=== PATIENT | female | born 1975 | race Asian ===

== ENCOUNTER 2018-09-25 08:00 | Outpatient (CLI) | payer OTHER ==
[2018-09-25 13:31] LABS: BASOPHILS # (AUTO) 0.1 10^3/uL (0.0-0.1); EOSINOPHILS # (AUTO) 0.1 10^3/uL (0.0-0.7); EOSINOPHILS % (AUTO) 1.8 %; HGB - HEMOGLOBIN 14.8 g/dL (12.0-16.0); LYMPHOCYTES # (AUTO) 2.4 10^3/uL (1.5-3.5); LYMPHOCYTES % (AUTO) 36.6 %; MEAN CORPUSCULAR HEMOGLOBIN 29.3 pg (27.0-31.0); MONOCYTES # (AUTO) 0.4 10^3/uL (0.0-1.0); MONOCYTES % (AUTO) 5.8 %; NEUTROPHILS # (AUTO) 3.6 10^3/uL (1.5-6.6); NEUTROPHILS % (AUTO) 54.8 %; PLT - PLATELET COUNT 225 10^3/uL (130-450); RED BLOOD COUNT 5.06 10^6/uL (4.20-5.40); RED CELL DISTRIBUTION WIDTH 13.1 % (12.0-15.0); WHITE BLOOD COUNT 6.6 x10^3/uL (4.8-10.8)
[2018-09-25 13:34] LABS: ALBUMIN 4.1 g/dL (3.2-5.5); ALBUMIN/GLOBULIN RATIO 1.2 (1.0-2.2); ALKALINE PHOSPHATASE 71 IU/L (42-121); ALT ALANINE AMINOTRANSFERASE 81 IU/L (10-60); AST ASPARTATE AMINOTRANSFERASE 38 IU/L (10-42); BILIRUBIN,TOTAL 0.8 mg/dL (0.2-1.0); BUN - BLOOD UREA NITROGEN 9 mg/dL (6-20); CALCIUM 9.5 mg/dL (8.5-10.3); CARBON DIOXIDE - CO2 27 mmol/L (21-32); CHLORIDE 101 mmol/L (101-111); CHOL/HDL RATIO 5.5 (<4.4); CHOLESTEROL 253 mg/dL; CREATININE 0.7 mg/dL (0.4-1.0); GFR - MDRD 92 (>89); GLUCOSE 111 mg/dL (70-100); HDL CHOLESTEROL 46 mg/dL; SODIUM 136 mmol/L (135-145); TOTAL PROTEIN 7.5 g/dL (6.7-8.2)
[2018-09-25 13:56] LABS: LDL CHOLESTEROL,DIRECT 83 mg/dL; LDLD/HDL RATIO 1.8 (<4.4)
[2018-09-25 14:08] LABS: HB2 TOTAL 16.3 g/dL; HEMOGLOBIN A1C 0.66 g/dL; HEMOGLOBIN A1C % 5.9 % (4.6-6.2)
== END 2018-09-25 23:59 | disposition home or self-care (01) ==
LOC: LAB.WCP 08:00
PROVIDERS: ATTEND Physician Assistant
DX: Z00.00 Encounter for general adult medical examination without abnormal findings (principal); E78.1 Pure hyperglyceridemia
CPT/HCPCS: 36415; 80053; 80061; 83036; 83721; 84443; 85025

== ENCOUNTER 2018-10-10 14:05 | Outpatient (CLI) | payer OTHER ==
--- NOTE | 2018-10-14 11:41 | Mammography Report ---
Reason: SCREENING MAMMO Procedure Date: 10/10/2018 Accession Number: [id number] / [id number] Procedure: KENDRA - Screening Mammo w/Lex CPT Code: FULL RESULT: EXAM: Screening Mammo w/Lex DATE: 10/10/2018 2:47 PM CLINICAL HISTORY: Screening examination. TECHNIQUE: (B) - Bilateral CC and MLO views were obtained. COMPARISON: 09/09/2017, 02/18/2017, 11/23/2015 PARENCHYMAL PATTERN: (A) - The breasts demonstrate scattered fibroglandular densities bilaterally. FINDINGS: No change in widespread bilateral benign type calcifications including arterial calcifications and benign secretory disease. There are no suspicious masses, pleomorphic calcifications, or areas of distortion. IMPRESSION: Benign findings. BI-RADS category 2. RECOMMENDATION: (ANNUAL) - Recommend routine annual screening mammography. BI-RADS CATEGORY: (2) - Benign Findings. STANDARD QUALIFYING STATEMENTS: 1. This examination was not reviewed with the aid of Computer-Aided Detection (CAD). 2. A negative or benign imaging report should not preclude biopsy if clinically suspicious findings are present. 3. Dense breasts may obscure an underlying neoplasm. 4. This examination was reviewed without the aid of 3D breast imaging (tomosynthesis).
== END 2018-10-10 14:06 | disposition home or self-care (01) ==
LOC: DI 14:05
DX: Z12.31 Encounter for screening mammogram for malignant neoplasm of breast (principal)
CPT/HCPCS: 77063; 77067

== ENCOUNTER 2019-06-18 08:00 | Outpatient (CLI) | payer OTHER ==
[2019-06-18 18:55] LABS: ALBUMIN 4.7 g/dL (3.2-5.5); ALBUMIN/GLOBULIN RATIO 1.5 (1.0-2.2); BILIRUBIN,TOTAL 0.5 mg/dL (0.2-1.0); CALCIUM 9.2 mg/dL (8.5-10.3); CREATININE 0.7 mg/dL (0.4-1.0); TOTAL PROTEIN 7.8 g/dL (6.7-8.2)
[2019-06-18 19:06] LABS: HB2 TOTAL 14.9 g/dL; HEMOGLOBIN A1C 0.61 g/dL; HEMOGLOBIN A1C % 5.9 % (4.6-6.2)
== END 2019-06-18 23:59 | disposition home or self-care (01) ==
LOC: LAB.WCP 08:00
PROVIDERS: ATTEND Physician Assistant
DX: R73.03 Prediabetes (principal); R94.5 Abnormal results of liver function studies
CPT/HCPCS: 36415; 80053; 83036

== ENCOUNTER 2019-10-25 12:16 | Outpatient (CLI) | payer OTHER ==
--- NOTE | 2019-10-25 13:30 | Ultrasound Report ---
Reason: IRREGULAR MENSES Procedure Date: 10/25/2019 Accession Number: [id number] / [id number] Procedure: US - Pelvic w/Transvaginal CPT Code: Final Report FULL RESULT: EXAM: PELVIC ULTRASOUND EXAM DATE: 10/25/2019 01:00 PM. CLINICAL HISTORY: Irregular menses. COMPARISON: None. TECHNIQUE: Realtime transabdominal pelvic scan performed to identify the uterus and adnexa and as an overview of other pelvic structures, followed by transvaginal scan to provide greater detail of the uterus and adnexa, with static image documentation. FINDINGS: Uterus: 9.1 x 5.2 x 5.1 cm, volume 126 cc. Anteverted position. Normal overall size and echotexture. Masses: 1. Fundal subserosal fibroid 2.0 x 1.9 x 1.8 cm. 2. Fundal subserosal fibroid 1.5 x 1.4 x 1.3 cm. 3. Posterior subserosal fibroid 3.0 x 2.9 x 2.6 cm. Endometrium: 3 mm. Normal. Cervix: 4 mm nabothian cyst present. Right Ovary: 2.4 x 1.5 x 1.0 cm, volume 1.9 cc. Normal echotexture and blood flow. Left Ovary: 2.7 x 2.7 x 1.6 cm, volume 6.1 cc. Cyst or dominant follicle measures 1.9 cm, likely incidental. Free Fluid: None. Other: None. IMPRESSION: 1. No endometrial mass or thickening. 2. 3 subserosal uterine fibroids range in size from 1.5-3.0 cm. RADIA
== END 2019-10-25 12:17 | disposition home or self-care (01) ==
LOC: DI 12:16
PROVIDERS: ATTEND Physician Assistant
DX: D25.2 Subserosal leiomyoma of uterus (principal)
CPT/HCPCS: 76830; 76856

== ENCOUNTER 2019-11-24 08:00 | Outpatient (CLI) | payer OTHER ==
[2019-11-24 13:56] LABS: PROLACTIN 7.8 ng/mL
[2019-11-24 14:19] LABS: FOLLICLE STIMULATING HORMONE 18.28 mIU/mL
== END 2019-11-24 23:59 | disposition home or self-care (01) ==
LOC: LAB.WCP 08:00
PROVIDERS: ATTEND Obstetrics & Gynecology
DX: N92.6 Irregular menstruation, unspecified (principal)
CPT/HCPCS: 36415; 82306; 82670; 83001; 84146; 84443

== ENCOUNTER 2020-01-26 14:57 | Outpatient (CLI) | payer OTHER ==
--- NOTE | 2020-01-27 14:49 | Mammography Report ---
BILATERAL DIGITAL SCREENING MAMMOGRAM 3D/2D: 01/26/2020 CLINICAL: Routine screening. Comparison is made to exam dated: 10/10/2018 mammogram - [facility]. The tissue of both breasts is heterogeneously dense. This may lower the sensitivity of mammography. There is a focal asymmetry in the left breast at 2 o'clock posterior depth. No other significant masses, calcifications, or other findings are seen in either breast. IMPRESSION: INCOMPLETE: NEEDS ADDITIONAL IMAGING EVALUATION The focal asymmetry in the left breast is indeterminate. Additional views with possible ultrasound a re recommended. This exam was interpreted at Station ID: [id number]. NOTE: For mammograms, a report in lay terms will be sent to the patient. Approximately 15% of breast malignancies will not be visualized mammographically. In the management of a palpable breast mass, a negative mammogram must not discourage biopsy of a clinically suspicious lesion. Electronically Signed By: Reva Parnell M.D. lk/:01/26/2020 15:57:55 ACR BI-RADS Category 0: Incomplete 3340F PARENCHYMAL PATTERN: (D) - The breast(s) demonstrate(s) heterogeneously dense fibroglandular jana kelley. BI-RADS CATEGORY: (0) - 0 Mammo and [place] [id number] Immediate follow-up LATERALITY: (B)
== END 2020-01-26 14:58 | disposition home or self-care (01) ==
LOC: DI 14:57
DX: Z12.31 Encounter for screening mammogram for malignant neoplasm of breast (principal); R92.8 Other abnormal and inconclusive findings on diagnostic imaging of breast
CPT/HCPCS: 77063; 77067

== ENCOUNTER 2020-02-12 10:45 | Outpatient (CLI) | payer OTHER ==
--- NOTE | 2020-02-13 08:56 | XRAY Report ---
PROCEDURE: Lumbar Spine 2 View INDICATIONS: LOW BACK PAIN TECHNIQUE: 3 views of the lumbar spine were acquired. COMPARISON: None. FINDINGS: Bones: 5 [id number] vertebrae are present. There is normal bony alignment. No vertebral body compression fractures. Mild lower lumbar degenerative disc space loss. Facet hypertrophy from L3 L4-L 5 S1. No suspicious bony lesions. Soft tissues: Overlying bowel gas pattern is normal. No suspicious soft tissue calcifications. IMPRESSION: Lower lumbar degenerative disc disease and facet arthropathy. No evidence acute bony abn ormality of the lumbar spine. Reviewed by: Dewayne Ivan MD on 02/12/2020 12:24 PM PDT Approved by: Dewayne Ivan MD on 02/12/2020 12:24 PM PDT Station ID: [id number]
== END 2020-02-12 10:46 | disposition home or self-care (01) ==
LOC: DI 10:45
PROVIDERS: ATTEND Physician Assistant
DX: M51.36 Other intervertebral disc degeneration, lumbar region (principal); M47.816 Spondylosis without myelopathy or radiculopathy, lumbar region; M47.817 Spondylosis without myelopathy or radiculopathy, lumbosacral region
CPT/HCPCS: 72100

== ENCOUNTER 2020-03-16 14:12 | Outpatient (CLI) | payer OTHER ==
--- NOTE | 2020-03-17 08:26 | Mammography Report ---
UNILATERAL LEFT DIGITAL DIAGNOSTIC MAMMOGRAM 3D/2D: 03/16/2020 CLINICAL: Patient returns today to evaluate asymmetry in left breast. Comparison is made to exams dated: 01/26/2020 mammogram and 10/10/2018 mammogram - [facility]. The tissue of left breast is heterogeneously dense. This may lower the sensitivity of flavio mography. Previously questioned asymmetry dissipated with spot compression, indicating that the abnormality on the screening exam was due to superimposition of normal fibroglandular tissue. No significant masses, calcifications, or other findings are seen in the breast. IMPRESSION: NEGATIVE Previously questioned asymmetry dissipated with spot compression, indicating that the abnormality on the screening exam was due to superimposition of normal fibroglandular tissue. There is no mammographic evidence of malignancy. Return to annual mammogram screening schedule is rec ommended. This exam was interpreted at Station ID: [id number]. NOTE: For mammograms, a report in lay terms will be sent to the patient. Approximately 15% of breast malignancies will not be visualized mammographically. In the management of a palpable breast mass, a negative mammogram must not discourage biopsy of a clinically suspicious lesion. Electronically Signed By: Rodrick Villarreal M.D. jr/:03/16/2020 15:24:31 ACR BI-RADS Category 1: Negative 3341F PARENCHYMAL PATTERN: (D) - The breast(s) demonstrate(s) heterogeneously dense fibroglandular jana kelley. BI-RADS CATEGORY: (1) - 1 Mammogram [id number] return to screening LATERALITY: (B)
== END 2020-03-16 14:13 | disposition home or self-care (01) ==
LOC: DI 14:12
PROVIDERS: ATTEND Physician Assistant
DX: R92.8 Other abnormal and inconclusive findings on diagnostic imaging of breast (principal)

== ENCOUNTER 2020-04-19 15:05 | Outpatient (CLI) | payer OTHER ==
--- NOTE | 2020-04-19 16:32 | Ultrasound Report ---
PROCEDURE: Pelvic w/Transvaginal INDICATIONS: IRREGULAR MENSES, UTERUS FIBROIDS TECHNIQUE: Real-time scanning was performed of the pelvic organs, with image documentation. Additional endovagi nal scanning was necessary due to incomplete visualization of the adnexal and endometrial structures by transabdominal scanning. COMPARISON: 10/25/2019 pelvic ultrasound. FINDINGS: Transabdominal scanning: Limited scanning through the kidneys shows no hydronephrosis. No pathologi c free abdominal or pelvic fluid. Endovaginal scanning: Uterus: Uterus is normal in size at 5.3 x 4.8 x 6.3 cm. The endometrium measures 3.0 mm in combined thickness. Note is made of scattered uterine fibroids. On the right at the fundal area subserosal p ositioning there is a 2.3 x 2.3 x 1.8 cm fibroid not significantly changed from the prior study. At t he midline posteriorly in the subserosal position there is a 3.1 x 2.8 x 2.7 cm fibroid, also not sig nificantly changed. On the left in the fundus at the subserosal area there is a 1.7 x 2.0 x 1.8 cm ad ditional fibroid, also not significantly enlarged diminished in size considering differences in scan angulation. At the right ovary the structure measures 2.5 x 0.8 x 2.0 cm and contains a cyst that is largest at 2 cm. Less than 12 follicular cysts are present. Similarly on the left the ovarian size is normal at 2 .6 x 1.1 x 1.9 cm and the largest cyst is less than 2 cm IMPRESSION: Uterine fibroids which have not significantly changed in size, scattered within the myometrium. Elina l endometrial lining thickness. Scattered follicular cysts noted in each ovary, no dominant or pathol ogically enlarged ovarian cyst is found. Reviewed by: Ethan Ward MD on 04/19/2020 4:30 PM PDT Approved by: Ethan Ward MD on 04/19/2020 4:30 PM PDT Station ID: [id number]
== END 2020-04-19 15:06 | disposition home or self-care (01) ==
LOC: DI 15:05
PROVIDERS: ATTEND Obstetrics & Gynecology
DX: D25.2 Subserosal leiomyoma of uterus (principal); N83.02 Follicular cyst of left ovary; N83.01 Follicular cyst of right ovary
CPT/HCPCS: 76830; 76856

== ENCOUNTER 2020-08-18 07:20 | Outpatient (CLI) | payer OTHER ==
[2020-08-18 12:20] LABS: HEMOGLOBIN A1c% 5.8 % (4.27-6.07)
[2020-08-18 12:35] LABS: ALBUMIN 4.3 g/dL (3.2-5.5); ALBUMIN/GLOBULIN RATIO 1.4 (1.0-2.2); ALKALINE PHOSPHATASE 73 IU/L (42-121); ALT ALANINE AMINOTRANSFERASE 69 IU/L (10-60); AST ASPARTATE AMINOTRANSFERASE 37 IU/L (10-42); BILIRUBIN,TOTAL 0.7 mg/dL (0.2-1.0); BUN - BLOOD UREA NITROGEN 11 mg/dL (6-20); CALCIUM 9.6 mg/dL (8.5-10.3); CARBON DIOXIDE - CO2 23 mmol/L (21-32); CHLORIDE 101 mmol/L (101-111); CHOLESTEROL 276 mg/dL; CREATININE 0.7 mg/dL (0.4-1.0); GLUCOSE 102 mg/dL (70-100); HDL CHOLESTEROL 46 mg/dL; TOTAL PROTEIN 7.4 g/dL (6.7-8.2)
[2020-08-18 13:10] LABS: LDL CHOLESTEROL,DIRECT 83 mg/dL; LDLD/HDL RATIO 1.8 (<4.4)
== END 2020-08-18 23:59 | disposition home or self-care (01) ==
LOC: LAB.WCP 07:20
PROVIDERS: ATTEND Physician Assistant Medical
DX: R73.9 Hyperglycemia, unspecified (principal); E55.9 Vitamin D deficiency, unspecified; E78.1 Pure hyperglyceridemia
CPT/HCPCS: 36415; 80053; 80061; 82306; 83036; 83721

== ENCOUNTER 2020-10-02 04:56 | Emergency (ER) | payer OTHER ==
--- NOTE | 2020-10-02 05:04 | ED Physician Documentation ---
PD HPI CHEST PAIN - Stated complaint Stated Complaint: CHEST PRESSURE, NAUSEA - Chief complaint Chief Complaint: Cardiac - History obtained from History obtained from: Patient - History of Present Illness Timing - onset: How many days ago (4-5) Timing - onset during: Light activity Timing - duration: Days (4-5) Timing - details: Gradual onset, Waxing and waning (Onset this past of right flank to upper abdomen and lower chest pain waxing and waning and improved with ibuprofen initially. More consistent the last 2 days. No change with breathing position or eating.) Quality: Aching, Pain Location: Right chest (upper abd to lower chest, just under breast, radiating to right flank.) Radiation: Other (right flank) Improved by: Other medication (ibuprofen initially improved it, but not the past 2 days.). No: Rest Worsened by: No: Inspiration, Eating, Movement, Palpation Associated symptoms: Nausea, General Weakness, Other (feeling tired/fatigue; has not had any injury to the area nor any sores/rash.). No: Shortness of air, Vomiting, Palpitations, Cough Similar symptoms before: Has not had sx before Recently seen: Not recently seen Review of Systems Constitutional: reports: Fatigue. denies: Fever, Chills, Myalgias Nose: denies: Rhinorrhea / runny nose, Congestion Throat: denies: Sore throat Cardiac: denies: Palpitations, Pedal edema, Calf pain Respiratory: denies: Cough GI: reports: Nausea. denies: Vomiting, Diarrhea, Bloody / black stool : denies: Dysuria, Frequency, Hematuria Skin: denies: Rash, Lesions Neurologic: reports: Generalized weakness. denies: Near syncope, Headache PD PAST MEDICAL HISTORY - Past Medical History Cardiovascular: None Respiratory: None Endocrine/Autoimmune: None GI: None - Allergies Allergies/Adverse Reactions: Allergies Allergy/AdvReac Type Severity Reaction Status Date / Time No Known Drug Allergies Allergy Verified 10/02/20 05:06 PD ED PE NORMAL - Vitals Vital signs reviewed: Yes - General General: Alert and oriented X 3, Well developed/nourished - HEENT HEENT: Moist mucous membranes, Pharynx benign - Neck Neck: Supple, no meningeal sign, No adenopathy - Cardiac Cardiac: RRR, No murmur - Respiratory Respiratory: No respiratory distress, Clear bilaterally - Abdomen Abdomen: Normal bowel sounds, Soft, Non tender, Non distended, No organomegaly - Female Female : Deferred - Rectal Rectal: Deferred - Back Back: No CVA TTP - Derm Derm: Normal color, No rash - Extremities Extremities: No edema, No calf tenderness / cord - Neuro Neuro: Alert and oriented X 3, No motor deficit, Normal speech Results - Vitals Vitals: Vital Signs - 24 hr 10/02/20 05:00 Temperature 36.0 C L Heart Rate 72 Respiratory 18 Rate Blood Pressure 127/76 O2 Saturation 97 Oxygen O2 Source Room air - EKG (time done) 05:00 Rate: Rate (enter#) (73) Rhythm: NSR [place]: Normal Intervals: Normal CO QRS: Normal Ischemia: Normal ST segments. No: ST elevation c/w ischemia, ST depression Compare to prior EKG: Old EKG unavailable PD MEDICAL DECISION MAKING - ED course Complexity details: considered differential (She has had 4 to 5 days of right upper quadrant abdominal vs lower chest pain not really associated with breathing movement eating or position. No tenderness in the upper abdomen. Unclear the etiology. EKG is normal. Will check troponin as well as LFTs and blood count. Opt for CT over US.), d/w patient
[2020-10-02] MEDS ORDERED: ONDANSETRON 4 MG/2 ML VIAL IVP STA (05:20)
[2020-10-02] MEDS ORDERED: MORPHINE 10 MG/ML VIAL IVP STA (05:20)
[2020-10-02] MEDS ORDERED: SODIUM CHLORIDE 0.9% 1,000 ML IV STA (05:24)
[2020-10-02 05:38] LABS: BASOPHILS % (AUTO) 0.6 %; EOSINOPHILS # (AUTO) 0.1 10^3/uL (0.0-0.7); EOSINOPHILS % (AUTO) 0.8 %; HCT - HEMATOCRIT 38.4 % (37.0-47.0); HGB - HEMOGLOBIN 13.3 g/dL (12.0-16.0); LYMPHOCYTES # (AUTO) 2.6 10^3/uL (1.5-3.5); LYMPHOCYTES % (AUTO) 39.3 %; MEAN CORPUSCULAR HEMOGLOBIN 28.9 pg (27.0-31.0); MEAN CORPUSCULAR HGB CONC 34.6 g/dL (32.0-36.0); MEAN CORPUSCULAR VOLUME 83.5 fL (81.0-99.0); MEAN PLATELET VOLUME 10.1 fL (7.9-10.8); MONOCYTES # (AUTO) 0.5 10^3/uL (0.0-1.0); MONOCYTES % (AUTO) 7.4 %; NEUTROPHILS # (AUTO) 3.4 10^3/uL (1.5-6.6); NEUTROPHILS % (AUTO) 51.6 %; PLT - PLATELET COUNT 211 10^3/uL (130-450); RED CELL DISTRIBUTION WIDTH 11.3 % (12.0-15.0); WHITE BLOOD COUNT 6.6 x10^3/uL (4.8-10.8)
[2020-10-02] MEDS ORDERED: IOPAMIDOL-300 100 ML VIAL ONE (05:44)
[2020-10-02 05:58] LABS: ALBUMIN 3.9 g/dL (3.2-5.5); ALBUMIN/GLOBULIN RATIO 1.4 (1.0-2.2); BILIRUBIN,TOTAL 0.5 mg/dL (0.2-1.0); CREATININE 0.4 mg/dL (0.4-1.0); POTASSIUM 3.9 mmol/L (3.5-5.0); TOTAL PROTEIN 6.7 g/dL (6.7-8.2)
[2020-10-02 06:04] LABS: BILIRUBIN,URINE NEGATIVE (NEGATIVE); GLUCOSE, URINE (UA) NEGATIVE (NEGATIVE); KETONES,URINE (UA) NEGATIVE (NEGATIVE); LEUKOCYTE ESTERASE, URINE NEGATIVE (NEGATIVE); NITRITE,URINE NEGATIVE (NEGATIVE); OCCULT BLOOD,URINE NEGATIVE (NEGATIVE); PROTEIN,URINE NEGATIVE (NEGATIVE); UROBILINOGEN,URINE 0.2 (NORMAL) E.U./dL (NORMAL)
[2020-10-02 06:07] LABS: CLARITY,URINE CLEAR (CLEAR); HCG UR QUAL NEGATIVE
[2020-10-02] MEDS ORDERED: IOPAMIDOL-300 100 ML VIAL IVP ONE (06:36)
[2020-10-02] MEDS ORDERED: MORPHINE 2 MG/ML CARPUJECT IVP STA (07:38)
--- NOTE | 2020-10-02 07:41 | ED Physician Documentation ---
ED Addendum - Addendum Addendum: 10/02/20 07:40 Patient endorsed to me by Dr. Ornelas pending CT. Upon my exam she is in no acute distress, stating that the morphine helps with her pain and is now 4 out of 10 however she feels like it is creeping back up. Nontender on exam with negative Hoskins sign. Liver edge palpable several inches below the rib. LFTs within normal limits. Will await CT results and reevaluate. 10/02/20 08:46 CT with fatty liver, fibroids. POCUS without evidence of gallstones. grossly normal cbd, gbw. no PCCF. neg SM. d/w patient who knows to f/u with her primary for referral to GI. plan to c/w ibuprofen as needed for pain. strict return precautions given. impression 1. steatohepatitis 2. uterine adenomyosis 3. abdominal pain
--- NOTE | 2020-10-02 08:23 | CT Report ---
PROCEDURE: Abdomen/Pelvis W INDICATIONS: Abdominal pain, RUQ, for 4 days CONTRAST: IV CONTRAST: Isovue 300 ml: 100 PO CONTRAST: *NO PO CONTRAST TECHNIQUE: After the administration of contrast, 5 mm thick sections acquired from the diaphragms to the sym physis. 5 mm thick coronal and sagittal reformats were acquired. For radiation dose reduction, the following was used: automated exposure control, adjustment of mA and/or kV according to patient size . COMPARISON: None. FINDINGS: Image quality: Excellent. ABDOMEN: Lung bases: Lung bases are clear. Heart size is normal. Solid organs: Liver and spleen are normal in size and enhancement. There is hepatic fatty infiltrati on. Gallbladder appears normal Biliary system is non dilated. Pancreas enhances normally. No adren al nodules. Kidneys demonstrate normal size and enhancement, without hydronephrosis. Peritoneum and bowel: Bowel loops demonstrate normal wall thickness and caliber. No free fluid or a ir. Nodes and vessels: No retroperitoneal or mesenteric adenopathy by size criteria. Aorta and inferior vena cava are normal in size. Miscellaneous: No ventral hernias. PELVIS: Genitourinary: Bladder wall thickness is normal. Note is made of uterine fibroids, producing a lobu lated uterine contour which is not significantly enlarged. Miscellaneous: No inguinal hernias or adenopathy. A normal appendix is found at the right lower chu drant. Bones: No suspicious bony lesions. No vertebral body compression fractures. IMPRESSION: A definite source of abdominal pain at the right upper quadrant related to the gallbladd er or bile ducts is not found. There is, however, fatty infiltration throughout the liver. Correlatio n for etiology of hepatic steatosis is recommended. Uterine fibroids within the uterus which overall is within normal limits in size. Normal appendix fou nd. Reviewed by: Ethan Ward MD on 10/02/2020 8:21 AM PDT Approved by: Ethan Ward MD on 10/02/2020 8:21 AM PDT Station ID: [id number]
[2020-10-02 09:06] VITALS: BP 114/76
--- OUTSIDE RECORDS SUMMARY | 2020-10-04 02:51 | EXTERNAL MEDICAL SUMMARY RPT | Continuity of Care Document ---
:1975 Demographics Phone Unavailable Preferred Language Unknown Marital Status Unknown Adventism Affiliation Unknown Race Unknown Ethnic Group Unknown Author Organization [place] Address [address] [place] [address] Phone Social History date description facility [phone]
== END 2020-10-02 09:03 | disposition home or self-care (01) ==
LOC: ED 04:56
DX: K75.81 Nonalcoholic steatohepatitis (NASH) (principal); N80.0 Endometriosis of uterus; D25.9 Leiomyoma of uterus, unspecified; R07.9 Chest pain, unspecified
CPT/HCPCS: 36415; 74177; 80053; 81003; 81025; 83690; 84484; 85025; 93005; 96374; 96375; 96376; 99284; Q9967; 81001; 87086

== ENCOUNTER 2020-10-04 07:29 | Outpatient (CLI) | payer OTHER ==
--- NOTE | 2020-10-04 08:09 | Ultrasound Report ---
PROCEDURE: Abdomen Limited INDICATIONS: RUQ ABD PAIN TECHNIQUE: Real-time scanning was performed of the abdominal and retroperitoneal organs, with image documentatio n. COMPARISON: CT abdomen/pelvis 10/02/2020 FINDINGS: Liver: Liver is normal in size and diffusely increased in echogenicity. Gallbladder: The gallbladder appears normal without gallstones or gallbladder wall thickening. There is no pericholecystic fluid. Sonographic Hoskins sign is negative. Biliary ducts: Intrahepatic bile ducts are non-dilated. Extrahepatic bile duct caliber measures 6 m m. Normal is 6-7 mm or less in diameter, or 10 mm or less post-cholecystectomy. Pancreas: Visualized portions of the pancreas are sonographically normal. Kidneys: Right kidney is normal in size and echotexture. Right kidney measures 11.3 cm long. No hyd ronephrosis or nephrolithiasis. No solid masses. Aorta: Visualized aorta is normal in caliber at less than 3 cm. IVC: Intrahepatic inferior vena cava is patent. Miscellaneous: No free right upper quadrant fluid. IMPRESSION: 1. No normal sonographic appearance of the gallbladder. 2. Diffusely increased hepatic echogenicity is nonspecific, but most commonly encountered in the set ting of hepatic steatosis. However, other causes of hepatocellular disease are not excluded. Recommen d clinical correlation. Reviewed by: Jerzy Ramirez MD on 10/04/2020 8:07 AM PDT Approved by: Jerzy Ramirez MD on 10/04/2020 8:07 AM PDT Station ID: [id number]
== END 2020-10-04 07:30 | disposition home or self-care (01) ==
LOC: DI 07:29
PROVIDERS: ATTEND Physician Assistant Medical
DX: R93.2 Abnormal findings on diagnostic imaging of liver and biliary tract (principal)

== ENCOUNTER 2020-10-08 12:43 | Emergency (ER) | payer OTHER ==
--- OUTSIDE RECORDS SUMMARY | 2020-10-08 12:47 | EXTERNAL MEDICAL SUMMARY RPT | Continuity of Care Document ---
:1975 Demographics Phone Unavailable Preferred Language Unknown Marital Status Unknown Quaker Affiliation Unknown Race Unknown Ethnic Group Unknown Author Organization [place] Address [address] [phone] Phone Social History date description facility [phone]
--- OUTSIDE RECORDS SUMMARY | 2020-10-08 12:50 | EXTERNAL MEDICAL SUMMARY RPT | Continuity of Care Document ---
:1975 Demographics Phone Unavailable Preferred Language Unknown Marital Status Unknown Scientology Affiliation Unknown Race Unknown Ethnic Group Unknown Author Organization [place] Address [address] [phone] Phone Social History date description facility [phone]
[2020-10-08 13:21] LABS: BASOPHILS # (AUTO) 0.1 10^3/uL (0.0-0.1); BASOPHILS % (AUTO) 0.9 %; EOSINOPHILS # (AUTO) 0.1 10^3/uL (0.0-0.7); EOSINOPHILS % (AUTO) 1.4 %; HCT - HEMATOCRIT 42.1 % (37.0-47.0); HGB - HEMOGLOBIN 14.3 g/dL (12.0-16.0); LYMPHOCYTES # (AUTO) 2.6 10^3/uL (1.5-3.5); LYMPHOCYTES % (AUTO) 38.9 %; MEAN CORPUSCULAR HEMOGLOBIN 28.9 pg (27.0-31.0); MEAN CORPUSCULAR VOLUME 85.1 fL (81.0-99.0); MEAN PLATELET VOLUME 10.1 fL (7.9-10.8); MONOCYTES # (AUTO) 0.6 10^3/uL (0.0-1.0); MONOCYTES % (AUTO) 9.1 %; NEUTROPHILS # (AUTO) 3.2 10^3/uL (1.5-6.6); NEUTROPHILS % (AUTO) 49.2 %; PLT - PLATELET COUNT 238 10^3/uL (130-450); RED BLOOD COUNT 4.95 10^6/uL (4.20-5.40); RED CELL DISTRIBUTION WIDTH 11.6 % (12.0-15.0); WHITE BLOOD COUNT 6.6 x10^3/uL (4.8-10.8)
[2020-10-08 13:31] LABS: BILIRUBIN,URINE NEGATIVE (NEGATIVE); GLUCOSE, URINE (UA) NEGATIVE (NEGATIVE); KETONES,URINE (UA) NEGATIVE (NEGATIVE); LEUKOCYTE ESTERASE, URINE NEGATIVE (NEGATIVE); NITRITE,URINE NEGATIVE (NEGATIVE); OCCULT BLOOD,URINE NEGATIVE (NEGATIVE); PH,URINE 5.5 PH (5.0-7.5); PROTEIN,URINE NEGATIVE (NEGATIVE); UROBILINOGEN,URINE 0.2 (NORMAL) E.U./dL (NORMAL)
[2020-10-08 13:33] LABS: CLARITY,URINE CLEAR (CLEAR); HCG UR QUAL NEGATIVE
[2020-10-08 13:35] LABS: ALBUMIN 4.5 g/dL (3.2-5.5); ALBUMIN/GLOBULIN RATIO 1.4 (1.0-2.2); BILIRUBIN,TOTAL 0.9 mg/dL (0.2-1.0); CALCIUM 9.6 mg/dL (8.5-10.3); CREATININE 0.6 mg/dL (0.4-1.0); POTASSIUM 4.1 mmol/L (3.5-5.0); TOTAL PROTEIN 7.7 g/dL (6.7-8.2)
[2020-10-08] MEDS ORDERED: oxyCODONE 5 MG TABLET PO STA (14:06)
--- NOTE | 2020-10-08 14:09 | ED Physician Documentation ---
History of Present Illness - Stated complaint Stated Complaint: ABD PX - Chief complaint Chief Complaint: Abd Pain - History obtained from History obtained from: Patient - History of Present Illness Timing: How many days ago (5) Pain level max: 8 Pain level now: 8 - Additonal information Additional information: 45-year-old female presents to the emergency department with several days of right-sided chest wall pain that radiates to the back. She was seen here previously with normal laboratory testing, normal CT scan. CT was of the abdomen pelvis. She next day had a negative ultrasound. She states that nothing makes the pain better or worse. No change with breathing. No leg swelling. Not on anticoagulants. No recent travel. No fevers. No chills. She states tramadol is not helping the pain. Review of Systems Ten Systems: 10 systems reviewed and negative Constitutional: denies: Fever, Chills GI: denies: Vomiting, Diarrhea Skin: denies: Rash Musculoskeletal: denies: Neck pain, Back pain Neurologic: denies: Headache PD PAST MEDICAL HISTORY - Past Medical History Past Medical History: Yes Cardiovascular: None Respiratory: None Neuro: None Endocrine/Autoimmune: None GI: None THERMAL CUTTER HAND: None : None HEENT: None Psych: None Musculoskeletal: None Derm: None - Past Surgical History Past Surgical History: No - Present Medications Home Medications: Ambulatory Orders Medication Instructions Recorded Confirmed Oxycodone HCl/Acetaminophen 1 - 2 each PO Q6H PRN #14 tablet 10/08/20 [Percocet 5-325 mg Tablet] Valacyclovir HCl [Valtrex] 1,000 mg PO TID #21 tablet 10/08/20 predniSONE [Deltasone] 10 mg PO [id number] #42 tab 10/08/20 - Allergies Allergies/Adverse Reactions: Allergies Allergy/AdvReac Type Severity Reaction Status Date / Time No Known Drug Allergies Allergy Verified 10/08/20 12:50 - Social History Does the pt smoke?: No Smoking Status: Never smoker Does the pt drink ETOH?: No Does the pt have substance abuse?: No - Immunizations Immunizations are current?: Yes Immunizations: TDAP current <10years - POLST Patient has POLST: No PD ED PE NORMAL - Vitals Vital signs reviewed: Yes - General General: Alert and oriented X 3, No acute distress - HEENT HEENT: Moist mucous membranes - Neck Neck: Supple, no meningeal sign - Cardiac Cardiac: RRR - Respiratory Respiratory: No respiratory distress, Clear bilaterally - Derm Derm: Warm and dry, Other (There is a dermatomal rash at approximately T8 that wraps around to just under the breast. It is raised, vesicular and papular. Erythematous. No secondary signs of infection.) - Extremities Extremities: Normal ROM s pain - Neuro Neuro: Alert and oriented X 3 - Psych Psych: Normal mood, Normal affect Results - Vitals Vitals: Vital Signs - 24 hr 10/08/20 10/08/20 12:50 13:24 Temperature 36.6 C 36.6 C Heart Rate 94 94 Respiratory 20 20 Rate Blood Pressure 142/90 H 142/90 H O2 Saturation 100 100 Oxygen O2 Source Room air - Labs Labs: Laboratory Tests 10/08/20 10/08/20 10/08/20 13:05 13:12 13:12 WBC 6.6 RBC 4.95 Hgb 14.3 Hct 42.1 MCV 85.1 MCH 28.9 MCHC 34.0 RDW 11.6 L Plt Count 238 MPV 10.1 Neut # (Auto) 3.2 Lymph # (Auto) 2.6 [place] # (Auto) 0.6 Eos # (Auto) 0.1 Baso # (Auto) 0.1 Absolute Nucleated RBC 0.00 Nucleated RBC % 0.0 Sodium 137 Potassium 4.1 Chloride 104 Carbon Dioxide 21 Anion Gap 12.0 BUN 10 Creatinine 0.6 Estimated GFR (MDRD) 109 Glucose 103 H Calcium 9.6 Total Bilirubin 0.9 AST 45 H ALT 73 H Alkaline Phosphatase 66 Total Protein 7.7 Albumin 4.5 Globulin 3.2 Albumin/Globulin Ratio 1.4 Lipase 22 Urine Color DARK YELLOW Urine Clarity CLEAR Urine pH 5.5 Ur Specific [employer] >=1.030 H Urine Protein NEGATIVE Urine Glucose (UA) NEGATIVE Urine Ketones NEGATIVE Urine Occult Blood NEGATIVE Urine Nitrite NEGATIVE Urine Bilirubin NEGATIVE Urine Urobilinogen 0.2 (NORMAL) Ur Leukocyte Esterase NEGATIVE Ur Microscopic Review NOT INDICATED Urine Culture Comments NOT INDICATED Urine HCG, Qual NEGATIVE PD MEDICAL DECISION MAKING - ED course Complexity details: reviewed old records, reviewed results, considered differential, d/w patient ED course: 45-year-old female with what appears to be shingles on exam. Will treat with Valtrex, prednisone and pain medication. Patient is otherwise well-appearing, nontoxic. Patient counseled regarding signs and symptoms for which I believe and urgent re-evaluation would be necessary. Patient with good understanding of and agreement to plan and is comfortable going home at this time This document was made in part using voice recognition software. While efforts are made to proofread this document, sound alike and grammatical errors may occur. Departure - Departure Disposition: 01 Home, Self Care Clinical Impression: Shingles Qualifiers: Herpes zoster complications: without complications Qualified Code(s): B02.9 - Zoster without complications Condition: Good Instructions: ED Shingles Follow-Up: Sonia Davis PA-C [Primary Care Provider] - Prescriptions: predniSONE [Deltasone] 10 mg PO [id number] #42 tab Oxycodone HCl/Acetaminophen [Percocet 5-325 mg Tablet] 1 - 2 each PO Q6H PRN #14 tablet PRN Reason: pain Valacyclovir HCl [Valtrex] 1,000 mg PO TID #21 tablet Comments: You have shingles on exam today. Take all medications as prescribe. Return if you worsen. Do not drink alcohol or drive while on narcotic pain medicine. Note that many narcotic pain relievers also contain tylenol/acetaminophen. Please ensure that your total dose of acetaminophen from all sources does not exceed 3 grams (3000mg) per day. You may constipated on this medication, take a stool softener such as "Colace" twice a day while you are on it. Also recommend a lowb-qur-xigayzh laxative such as senna or MiraLAX any day that you do not have a bowel movement. If you received narcotic pain medication in the emergency department, do not drive or operate machinery for the next 24 hours. All
[2020-10-08 14:24] VITALS: BP 126/55
== END 2020-10-08 14:36 | disposition home or self-care (01) ==
LOC: ED 12:43
DX: B02.9 Zoster without complications (principal)
CPT/HCPCS: 36415; 80053; 81003; 81025; 83690; 85025; 99283; 99284; A9270; 81001; 87086

== ENCOUNTER 2020-10-13 08:38 | Outpatient (CLI) | payer OTHER ==
[2020-10-13] MEDS ORDERED: SODIUM CHLORIDE 0.9% IV ONE (10:30)
[2020-10-13] MEDS ORDERED: SINCALIDE IV ONE (10:30)
--- NOTE | 2020-10-13 13:17 | Nuclear Medicine Report ---
PROCEDURE: Hepatobiliary HIDA w/ Rx INDICATIONS: RT UPPER QUAD ABD PAIN RADIOPHARMACEUTICAL: 5.2 mCi Tc-99m meprofenin i.v. and 1.5 ?g sincalide i.v. TECHNIQUE: Following intravenous administration of Tc-99m meprofenin, sequential anterior abdominal images were obtained. To evaluate the contractile response of the gallbladder in response to Cholecy stokinin (CCK) was administered by slow intravenous infusion approximately after the administration o f the radiopharmaceutical. Sequential imaging was continued for 30 minutes after the start of CCK in fusion. Gallbladder ejection fraction was calculated. COMPARISON: Abdominal ultrasound 10/04/2020 FINDINGS: Biliary scan: There is normal tracer uptake and excretion by the liver. There is normal visualizati on of the intrahepatic ducts, common bile duct, and gallbladder. There is normal tracer transit into the duodenum. CCK stimulation: There is normal contractile response of the gallbladder to CCK infusion. The calcu lated gallbladder ejection fraction is 100%; normal values are above 35%. IMPRESSION: 1. Normal biliary imaging study. 2. Normal contractile response of gallbladder to CCK infusion.. Reviewed by: Ethan Ward MD on 10/13/2020 1:15 PM PDT Approved by: Ethan Ward MD on 10/13/2020 1:15 PM PDT Station ID: [id number]
== END 2020-10-13 08:39 | disposition home or self-care (01) ==
LOC: DI 08:38
PROVIDERS: ATTEND Physician Assistant Medical
DX: R10.11 Right upper quadrant pain (principal)
CPT/HCPCS: 78227; J7040

== ENCOUNTER 2021-02-27 07:24 | Outpatient (CLI) | payer OTHER ==
[2021-02-27 12:33] LABS: ALBUMIN 4.1 g/dL (3.2-5.5); ALBUMIN/GLOBULIN RATIO 1.3 (1.0-2.2); ALKALINE PHOSPHATASE 82 IU/L (42-121); ALT ALANINE AMINOTRANSFERASE 45 IU/L (10-60); AST ASPARTATE AMINOTRANSFERASE 23 IU/L (10-42); BILIRUBIN,TOTAL 0.7 mg/dL (0.2-1.0); BUN - BLOOD UREA NITROGEN 11 mg/dL (6-20); CALCIUM 9.4 mg/dL (8.5-10.3); CARBON DIOXIDE - CO2 24 mmol/L (21-32); CHLORIDE 106 mmol/L (101-111); CHOL/HDL RATIO 3.4 (<4.4); CHOLESTEROL 227 mg/dL; CREATININE 0.5 mg/dL (0.4-1.0); GFR - MDRD 133 (>89); GLUCOSE 107 mg/dL (70-100); HDL CHOLESTEROL 66 mg/dL; LDL CHOLESTEROL,CALCULATED 121 mg/dL; LDL/HDL RATIO 1.8 (<4.4); POTASSIUM 4.1 mmol/L (3.5-5.0); SODIUM 138 mmol/L (135-145); TOTAL PROTEIN 7.3 g/dL (6.7-8.2); TRIGLYCERIDES 202 mg/dL; VLDL CHOLESTEROL 40 mg/dL
[2021-02-27 12:46] LABS: THYROID STIMULATING HORMONE < 0.08 uIU/mL (0.34-5.60)
[2021-02-27 13:32] LABS: FREE T4 (FREE THYROXINE) 1.41 ng/dL (0.58-1.64)
[2021-02-28 10:01] LABS: HEPATITIS C ANTIBODY NON-REACTIVE (NON-REACTIVE)
[2021-02-28 12:16] LABS: HEPATITIS B SURFACE ANTIGEN NON-REACTIVE (NON-REACTIVE)
== END 2021-02-27 23:59 | disposition home or self-care (01) ==
LOC: LAB.WCP 07:24
PROVIDERS: ATTEND Physician Assistant Medical
DX: Z00.00 Encounter for general adult medical examination without abnormal findings (principal); E78.1 Pure hyperglyceridemia; R79.89 Other specified abnormal findings of blood chemistry
CPT/HCPCS: 36415; 80053; 80061; 83721; 84439; 84443; 86317; 86704; 86709; 86803; 87340

== ENCOUNTER 2021-03-15 15:34 | Outpatient (CLI) | payer OTHER ==
--- NOTE | 2021-03-19 09:38 | Mammography Report ---
BILATERAL DIGITAL SCREENING MAMMOGRAM 3D/2D: 03/15/2021 CLINICAL: Routine screening. Comparison is made to exams dated: 03/16/2020 mammogram, 01/26/2020 mammogram, and 10/10/2018 mammogram - [facility]. There are scattered fibroglandular elements in both breasts. No significant masses, calcifications, or other findings are seen in either breast. There has been no significant interval change. IMPRESSION: NEGATIVE There is no mammographic evidence of malignancy. A 1 year screening mammogram is recommended. This exam was interpreted at Station ID: [id number]. NOTE: For mammograms, a report in lay terms will be sent to the patient. Approximately 15% of breast malignancies will not be visualized mammographically. In the management of a palpable breast mass, a negative mammogram must not discourage biopsy of a clinically suspicious lesion. Electronically Signed By: Stas Mendez M.D. [email or web address]:03/15/2021 16:59:22 ACR BI-RADS Category 1: Negative 3341F PARENCHYMAL PATTERN: (A) - The breast(s) demonstrate(s) scattered fibroglandular densities. BI-RADS CATEGORY: (1) - 1 RECOMMENDATION: (ANNUAL) - Recommend routine annual screening mammography. [id number] 1 year screening LATERALITY: (B)
== END 2021-03-15 15:35 | disposition home or self-care (01) ==
LOC: DI.N 15:34
DX: Z12.31 Encounter for screening mammogram for malignant neoplasm of breast (principal)

== ENCOUNTER 2021-07-18 08:33 | Outpatient (CLI) | payer OTHER ==
[2021-07-18 14:13] LABS: THYROID STIMULATING HORMONE 0.01 uIU/mL (0.34-5.60)
[2021-07-18 14:46] LABS: FREE T4 (FREE THYROXINE) 1.15 ng/dL (0.58-1.64)
== END 2021-07-18 08:34 | disposition home or self-care (01) ==
LOC: LAB.N 08:33
PROVIDERS: ATTEND Physician Assistant Medical
DX: Z00.00 Encounter for general adult medical examination without abnormal findings (principal)
CPT/HCPCS: 36415; 84439; 84443

== ENCOUNTER 2021-07-18 08:37 | Outpatient (CLI) | payer OTHER ==
--- NOTE | 2021-07-18 09:13 | XRAY Report ---
PROCEDURE: Chest 2 View X-Ray INDICATIONS: CHEST PX TECHNIQUE: 2 view(s) of the chest. COMPARISON: None. FINDINGS: SUPPORT DEVICES: None. LUNGS/PLEURA: No focal consolidation, pleural effusion or space-occupying pneumothorax. MEDIASTINUM: The cardiomediastinal silhouette is within normal limits. BONES/SOFT TISSUES: No acute abnormality. IMPRESSION: 1.No acute cardiopulmonary abnormality. Reviewed by: Guillaume Morales MD on 07/18/2021 9:12 AM [facility] Approved by: Guillaume Morales MD on 07/18/2021 9:12 AM [facility] Station ID: [id number]
== END 2021-07-18 08:38 | disposition home or self-care (01) ==
LOC: DI.N 08:37
PROVIDERS: ATTEND Physician Assistant Medical
DX: R07.9 Chest pain, unspecified (principal); Z00.00 Encounter for general adult medical examination without abnormal findings
CPT/HCPCS: 36415; 84439; 84443

== ENCOUNTER 2021-08-23 07:46 | Outpatient (CLI) | payer OTHER ==
--- NOTE | 2021-08-23 18:59 | CARDIAC PROCEDURE NOTE ---
Stress Test Report Service Date: 08/23/21 Ordering Provider: ZAK Davis Indication for Test: Chest pain Cardiac Risk Factors: Hyperlipidemia, possibly post-menopausal. Type of Stress Test: Exercise Treadmill Test (ETT) Procedure: After signing informed consent, the patient underwent a Misbah-protocol treadmill stress test. No cardiac imaging was ordered with this test. Resting heart rate:77 Peak HR: 167 ((95% pred max HR for age), 9.73 METS. Resting BP: 129/92 Peak BP: 181/83 The patient exercised for 7 minutes and 44 seconds on a Misbah-protocol treadmill stress test. He achieved a peak heart rate of 167 (95% PMHR) and 9.73 METS. She had no chest pain with exercise. She reported moderate shortness of breath and no other symptoms. Her perceived exertion was 13/20 on the Mary scale at peak. Oxygen saturation was greater than 94% with exercise throughout the test. Resting EKG: Normal sinus rhythm, rate 77, vertical axis, LVH voltage, early R/S transition. Resting EKG: Right axis deviation develops, but no new ST segment or T wave changes are seen. No cardiac imaging was ordered with this test. Summary: 1) Abnormal resting EKG and peak EKG, consistent with cor pulmonale. 2) No evidence of coronary ischemia by EKG criteria. No cardiac imaging was ordered with this test. 3) This patient's cardiac risk: Low. Recommendations: 1) Echocardiogram advised to evaluate for cor pulmonale.
== END 2021-08-23 07:47 | disposition home or self-care (01) ==
LOC: DI 07:46
PROVIDERS: ATTEND Physician Assistant Medical
DX: R07.9 Chest pain, unspecified (principal); R94.31 Abnormal electrocardiogram [ECG] [EKG]
CPT/HCPCS: 93016; 93017; 93018

== ENCOUNTER 2021-09-01 09:10 | Outpatient (CLI) | payer OTHER ==
[2021-09-01 13:54] LABS: BASOPHILS # (AUTO) 0.1 10^3/uL (0.0-0.1); BASOPHILS % (AUTO) 1.1 %; EOSINOPHILS # (AUTO) 0.1 10^3/uL (0.0-0.7); EOSINOPHILS % (AUTO) 1.4 %; HGB - HEMOGLOBIN 15.2 g/dL (12.0-16.0); LYMPHOCYTES # (AUTO) 2.8 10^3/uL (1.5-3.5); LYMPHOCYTES % (AUTO) 38.7 %; MEAN CORPUSCULAR HEMOGLOBIN 28.5 pg (27.0-31.0); MEAN CORPUSCULAR HGB CONC 33.8 g/dL (32.0-36.0); MEAN CORPUSCULAR VOLUME 84.4 fL (81.0-99.0); MONOCYTES # (AUTO) 0.5 10^3/uL (0.0-1.0); MONOCYTES % (AUTO) 6.4 %; NEUTROPHILS # (AUTO) 3.8 10^3/uL (1.5-6.6); NEUTROPHILS % (AUTO) 52.1 %; PLT - PLATELET COUNT 243 10^3/uL (130-450); RED BLOOD COUNT 5.33 10^6/uL (4.20-5.40); RED CELL DISTRIBUTION WIDTH 11.5 % (12.0-15.0); WHITE BLOOD COUNT 7.3 x10^3/uL (4.8-10.8)
[2021-09-01 14:22] LABS: ALBUMIN 4.3 g/dL (3.2-5.5); ALBUMIN/GLOBULIN RATIO 1.3 (1.0-2.2); ALKALINE PHOSPHATASE 85 IU/L (42-121); ALT ALANINE AMINOTRANSFERASE 69 IU/L (10-60); AST ASPARTATE AMINOTRANSFERASE 37 IU/L (10-42); BILIRUBIN,TOTAL 0.7 mg/dL (0.2-1.0); BUN - BLOOD UREA NITROGEN 11 mg/dL (6-20); CALCIUM 9.6 mg/dL (8.5-10.3); CARBON DIOXIDE - CO2 24 mmol/L (21-32); CHLORIDE 103 mmol/L (101-111); CHOL/HDL RATIO 6.3 (<4.4); CHOLESTEROL 301 mg/dL; CREATININE 0.5 mg/dL (0.4-1.0); GFR - MDRD 133 (>89); GLUCOSE 114 mg/dL (70-100); HDL CHOLESTEROL 48 mg/dL; POTASSIUM 3.8 mmol/L (3.5-5.0); SODIUM 137 mmol/L (135-145); TOTAL PROTEIN 7.6 g/dL (6.7-8.2); TRIGLYCERIDES 483 mg/dL
[2021-09-01 14:41] LABS: THYROID STIMULATING HORMONE < 0.08 uIU/mL (0.34-5.60)
[2021-09-01 15:19] LABS: LDL CHOLESTEROL,DIRECT 82 mg/dL; LDLD/HDL RATIO 1.7 (<4.4)
[2021-09-04 10:46] LABS: ESTIMATED AVERAGE GLUCOSE 123 mg/dL (70-100); HEMOGLOBIN A1c% 5.9 % (4.27-6.07)
== END 2021-09-01 09:11 | disposition home or self-care (01) ==
LOC: LAB.N 09:10
PROVIDERS: ATTEND Physician Assistant Medical
DX: Z00.00 Encounter for general adult medical examination without abnormal findings (principal); R73.9 Hyperglycemia, unspecified
CPT/HCPCS: 36415; 80053; 80061; 83036; 83721; 84439; 84443; 85025

== ENCOUNTER 2021-10-19 08:00 | Outpatient (CLI) | payer OTHER ==
[2021-10-19 19:13] LABS: FOLLICLE STIMULATING HORMONE 61.55 mIU/mL
[2021-10-19 20:42] LABS: THYROID STIMULATING HORMONE 0.01 uIU/mL (0.34-5.60)
[2021-10-19 21:32] LABS: FREE T4 (FREE THYROXINE) 2.38 ng/dL (0.58-1.64)
== END 2021-10-19 23:59 | disposition home or self-care (01) ==
LOC: LAB.N 08:00
PROVIDERS: ATTEND Physician Assistant Medical
DX: E05.90 Thyrotoxicosis, unspecified without thyrotoxic crisis or storm (principal); N95.1 Menopausal and female climacteric states
CPT/HCPCS: 36415; 83001; 84439; 84443

== ENCOUNTER 2021-12-10 07:15 | Outpatient (CLI) | payer OTHER ==
[2021-12-10 12:04] LABS: ALBUMIN/GLOBULIN RATIO 1.3 (1.0-2.2); ALKALINE PHOSPHATASE 81 IU/L (42-121); ALT ALANINE AMINOTRANSFERASE 38 IU/L (10-60); AST ASPARTATE AMINOTRANSFERASE 21 IU/L (10-42); BILIRUBIN,TOTAL 0.5 mg/dL (0.2-1.0); BUN - BLOOD UREA NITROGEN 10 mg/dL (6-20); CALCIUM 9.8 mg/dL (8.5-10.3); CARBON DIOXIDE - CO2 27 mmol/L (21-32); CHLORIDE 105 mmol/L (101-111); CHOL/HDL RATIO 5.6 (<4.4); CHOLESTEROL 257 mg/dL; CREATININE 0.6 mg/dL (0.4-1.0); GFR - MDRD 108 (>89); GLUCOSE 117 mg/dL (70-100); HDL CHOLESTEROL 46 mg/dL; LDL CHOLESTEROL,CALCULATED 144 mg/dL; LDL/HDL RATIO 3.1 (<4.4); SODIUM 137 mmol/L (135-145); TOTAL PROTEIN 7.2 g/dL (6.7-8.2); TRIGLYCERIDES 337 mg/dL; VLDL CHOLESTEROL 67 mg/dL
== END 2021-12-10 07:16 | disposition home or self-care (01) ==
LOC: LAB.N 07:15
PROVIDERS: ATTEND Physician Assistant Medical
DX: E78.1 Pure hyperglyceridemia (principal)
CPT/HCPCS: 36415; 80053; 80061; 83721

== ENCOUNTER 2021-12-18 12:02 | Outpatient (CLI) | payer OTHER | END 2021-12-18 12:03 | disposition home or self-care (01) | LOC: LAB.N 12:02 | PROVIDERS: ATTEND Physician Assistant Medical | DX: E55.9 Vitamin D deficiency, unspecified (principal); Z71.89 Other specified counseling | CPT/HCPCS: 36415; 82306; 86317 ==